=== PATIENT | female | born 1985 | race Two or more races ===

== ENCOUNTER 2016-05-14 02:09 | Emergency (ER) | payer SELFPAY ==
[~2016-05-14] VITALS: Ht 152.4 cm; Wt 83.4 kg
[2016-05-14] MEDS ORDERED: SODIUM CHLORIDE FLUSH 10ML SYR IVF ONE (02:30)
[2016-05-14] MEDS ORDERED: PROMETHAZINE 25 MG/ML, 1ML IM ONE (02:30)
[2016-05-14] MEDS ORDERED: ONDANSETRON 2MG/ML, 2ML IVPush ONE (02:30)
[2016-05-14] MEDS ORDERED: SODIUM CHLORIDE 0.9% 1,000ML IVBOLUS ONE (02:30)
[2016-05-14] MEDS ORDERED: ONDANSETRON 2MG/ML, 2ML ONE (02:52)
[2016-05-14] MEDS ORDERED: PROMETHAZINE 25 MG/ML, 1ML ONE (02:52)
[2016-05-14 02:54] LABS: ASPARTATE AMINO TRANSFERASE 38 U/L (15-37); BLOOD UREA NITROGEN 19 mg/dL (7-18)
[2016-05-14 04:07] VITALS: BP 125/62
== END 2016-05-14 04:26 | disposition home or self-care (01) ==
LOC: ED 04:10
DX: E86.0 Dehydration (principal); R11.2 Nausea with vomiting, unspecified; E11.65 Type 2 diabetes mellitus with hyperglycemia
CPT/HCPCS: 36415; 80053; 81001; 83690; 84703; 85025; 96361; 96372; 96374; 99284; J2405; J2550; J7030

== ENCOUNTER 2016-08-10 18:41 | Emergency (ER) | payer SELFPAY ==
[~2016-08-10] VITALS: Ht 170.2 cm; Wt 82.9 kg
[2016-08-10] MEDS ORDERED: METF500T4 PO (18:54)
[2016-08-10] MEDS ORDERED: vitamin d (18:54)
[2016-08-10] MEDS ORDERED: MORPHINE SULFATE 4 MG/ML, 1ML ONE (19:59)
[2016-08-10] MEDS ORDERED: DIPHENHYDRAMINE 50 MG/ML, 1ML ONE (19:59)
[2016-08-10] MEDS ORDERED: SODIUM CHLORIDE 0.9% 1,000ML IVBOLUS ONE (20:00)
[2016-08-10] MEDS ORDERED: DIPHENHYDRAMINE 50 MG/ML, 1ML IVPush ONE (20:00)
[2016-08-10] MEDS ORDERED: SODIUM CHLORIDE FLUSH 10ML SYR IVF ONE (20:00)
[2016-08-10] MEDS ORDERED: MORPHINE SULFATE 4 MG/ML, 1ML IVPush PRN (20:00)
[2016-08-10 20:12] LABS: ASPARTATE AMINO TRANSFERASE 58 U/L (15-37); BLOOD UREA NITROGEN 14 mg/dL (7-18)
[2016-08-10 20:17] LABS: IS PT STATUS REG ER OR PRE ER? YES
[2016-08-10] MEDS ORDERED: HYDROmorphone 1 MG/ML, 1ML ONE (22:09)
[2016-08-10] MEDS ORDERED: HYDROmorphone 2 MG/ML, 1ML IVPush PRN (22:30)
[2016-08-10] MEDS ORDERED: ONDANSETRON 2MG/ML, 2ML ONE (23:12)
[2016-08-10] MEDS ORDERED: KETOROLAC 30 MG/1 ML ONE (23:30)
[2016-08-10] MEDS ORDERED: FAMOTIDINE 20 MG/2 ML IVPush ONE (23:30)
[2016-08-10] MEDS ORDERED: KETOROLAC 60 MG/2 ML IVPush ONE (23:30)
[2016-08-10] MEDS ORDERED: ONDANSETRON 2MG/ML, 2ML IVPush ONE (23:30)
[2016-08-10] MEDS ORDERED: FAMOTIDINE 20 MG/2 ML ONE (23:34)
[2016-08-11] MEDS ORDERED: OMNIPAQUE 350 MG/ML, 100ML BOTTLE ONE (01:03)
[2016-08-11 01:26] VITALS: BP 118/75
== END 2016-08-11 01:28 | disposition home or self-care (01) ==
LOC: ED 21:47
DX: R07.89 Other chest pain (principal); R06.00 Dyspnea, unspecified; R00.0 Tachycardia, unspecified; E11.9 Type 2 diabetes mellitus without complications; Z86.711 Personal history of pulmonary embolism
CPT/HCPCS: 36415; 71010; 71275; 80053; 83880; 84484; 85025; 85610; 85730; 93005; 96361; 96374; 96375; 99285; J1170; J1200; J1885; J2405; J7030; Q9967; S0028

== ENCOUNTER 2020-09-11 00:23 | Emergency (ER) | payer OTHER ==
[~2020-09-11] VITALS: Ht 154.9 cm; Wt 90.8 kg
[~2020-09-11 00:23] MED LIST: METF500T17 PO; vitamin d
--- NOTE | 2020-09-11 00:42 | NUR ---
BREAK RN: PT CAME INTO ED THIS EVENING FOR A RASH COVERING ABDOMEN, BACK OF ARMS AND LEGS. PT HAS RED, RAISED BUMPS, REPORTS THEY ARE ITCHY BUT SHE WONT ITCH THEM BECAUSE IT CAUSES PAIN/BURNING WHEN SHE DOES. PT PLACED ON SPO2/BP MONITORING, PROVIDED WARM BLANKETS FOR COMFORT, NAD, BED IN LOWEST, RAILS ENGAGED, CALL LIGHT ON LAP, FAMILY AT BS, WC. CARLI ERP AT BS FOR EVAL AND POC.
[2020-09-11 00:57] VITALS: BP 119/69
--- NOTE | 2020-09-11 00:57 | NUR ---
Patient/Caregiver given discharge instructions and they have confirmed that they understand the instructions. Patient ambulatory with steady gait. NAD, all questions answered appropriately, denies additional needs at this time. No personal belongings left in room after discharge.
== END 2020-09-11 01:34 | disposition home or self-care (01) ==
LOC: ED 01:28
DX: L73.9 Follicular disorder, unspecified (principal); E11.9 Type 2 diabetes mellitus without complications; Z86.711 Personal history of pulmonary embolism
CPT/HCPCS: 99283